=== PATIENT | male | born 1945 | race Caucasian/White ===

== ENCOUNTER 2018-08-02 07:39 | Inpatient (IN) | payer OTHER ==
--- NOTE | 2018-08-01 15:42 | GHP ---
DATE OF ADMISSION: 08/02/2018 DATE OF SURGERY: 08/02/2018. HISTORY OF PRESENT ILLNESS: The patient is a 73-year-old male who has had progressive problems with his right shoulder for years. He has pain, progressive limitation of motion. He has been diagnosed by x-ray and MRI, is having advanced and severe glenohumeral osteoarthritis of the right shoulder. H e has tried exercises. He has tried injections, none of which have been helpful in the progression o f his shoulder dysfunction. His x-rays show severe [id number] osteoarthritis of the glenohumeral j oint with flattening of the humeral head, inferior bone spurring, subchondral sclerosis. He has had an MRI that confirms his advanced glenohumeral osteoarthritis. He does have some rotator cuff tendin osis without significant tear of the rotator cuff. He has opted to proceed with a right total should er arthroplasty. PAST MEDICAL HISTORY: No medical problems. PAST SURGICAL HISTORY: Include a tonsillectomy, adenoidectomy, appendectomy. He has had foot proced ures, toe and bunion. MEDICATIONS: He is using supplements only, vitamins, glucosamine, B12, vitamin D. ALLERGIES: No known drug allergies. SOCIAL HISTORY: He is a nonsmoker. REVIEW OF SYSTEMS: Negative for cardiopulmonary disease. PHYSICAL EXAM: GENERAL APPEARANCE: The patient is a well-developed, well-nourished male in no appar ent distress. HEAD AND NECK: Normocephalic, atraumatic. CHEST: Clear. CARDIOVASCULAR: Regular r ate and rhythm. ABDOMEN: Soft. NEUROLOGIC: He is alert and oriented x3. EXTREMITIES: The right shoulder shows about 90 degrees of forward flexion. He only has about 5 degrees of external rotation . He can just get his hand to his low back. He has reasonable strength on initiation of abduction, external rotation, and can support supraspinatus testing. IMPRESSION: Right shoulder osteoarthritis. PROCEDURE: A right total shoulder arthroplasty. Benefits and risks of surgery have been reviewed wi th the patient. He understands that the risks include infection, damage to blood vessel or nerve, fa ilure or loosening of the components, and need for revision. We have reviewed the rehab and recovery process. He has signed his consent form and wishes to proceed. /[id number]/MODL
[2018-08-02] MEDS ORDERED: TRANEXAMIC ACID 1,000 MG in NS 100 ML IV ONE (07:49)
[2018-08-02] MEDS ORDERED: ceFAZolin 2 GM/DEXTROSE 100 ML IV ONE (07:49)
[2018-08-02] MEDS ORDERED: LR 1,000 ML IV SCH ×2 (07:49→13:30)
[2018-08-02] MEDS ORDERED: ROPIVACAINE 0.2% 80 MG, EPINEPHrine 0.2 MG, KETOROLAC TROMETHAMINE 30 MG in SYRINGE 0 ML IU ONE (07:49)
[2018-08-02] MEDS ORDERED: ACETAMINOPHEN 500 MG TAB PO ONE (07:49)
[2018-08-02] MEDS ORDERED: PREGABALIN 150 MG CAP PO ONE ×2 (07:49→08:00)
[2018-08-02] MEDS ORDERED: LIDOCAINE 1% 2 ML INJ ID PRN (07:53)
[2018-08-02] MEDS ORDERED: LR 1,000 ML IV ONE (07:53)
[2018-08-02] MEDS ORDERED: BUPIVACAINE/EPI 0.5% 30 ML SDV ONE (09:07)
[2018-08-02] MEDS ORDERED: POLYMYXIN B SULFATE 500,000 UNIT/10 ML SYR IRR ONE (09:07)
[2018-08-02] MEDS ORDERED: ONDANSETRON 4 MG/2 ML VIAL ONE (09:22)
[2018-08-02] MEDS ORDERED: fentaNYL 100 MCG/2 ML INJ ONE (09:22)
[2018-08-02] MEDS ORDERED: LIDOCAINE 2% 100 MG/5 ML SYR ONE (09:22)
[2018-08-02] MEDS ORDERED: DEXAMETHASONE 4 MG/ML VIAL ONE (09:22)
[2018-08-02] MEDS ORDERED: ROPIVACAINE HCL 150 MG/30 ML INJ ONE (09:22)
[2018-08-02] MEDS ORDERED: PROPOFOL 200 MG/20 ML VIAL ONE ×2 (09:23→11:24)
[2018-08-02] MEDS ORDERED: MIDAZOLAM 2 MG/2 ML VIAL IVP ONE (10:01)
--- NOTE | 2018-08-02 10:01 | PDANEPAE ---
ANE Past Medical History - Cardiovascular History Hx Hypertension: No Hx Arrhythmias: No Hx Chest Pain: No Hx Coronary Artery / Peripheral Vascular Disease: No Hx CHF / Valvular Disease: No Hx Palpitations: No - Pulmonary History Hx COPD: No Hx Asthma/Reactive Airway Disease: No Hx Recent Upper Respiratory Infection: No Hx Oxygen in Use at Home: No Hx Sleep Apnea: No Sleep Apnea Screening Result - Last Documented: Negative - Neurologic History Hx Cerebrovascular Accident: No Hx Seizures: No Hx Dementia: No - Endocrine History Hx Diabetes: No - Renal History Hx Renal Disorders: No - Liver History Hx Hepatic Disorders: No - Neurological & Psychiatric Hx Hx Neurological and Psychiatric Disorders: No - Cancer History Hx Cancer: No - Congenital Disorder History Hx Congenital Disorders: Yes Congenital History Comment: hemochromatosis - being followed by [facility] - GI History Hx Gastrointestinal Disorders: No - Other Health History Other Health History: wears glasses. bilateral hearing aids. permanent retainer behind front teeth - Chronic Pain History Chronic Pain: No - Surgical History Prior Surgeries: appendectomy as a child. t&a as a child. 06/2012, bunionectomy right foot ANE Review of Systems Review of Systems: - Exercise capacity METS (RN): 4 METS ANE Patient History - Allergies Allergies/Adverse Reactions: No Known Allergies Allergy (Verified 07/28/18 14:19) - Home Medications Home Medications: Cholecalciferol Vit D3 [Vitamin D3 (*)] 2,000 units PO DAILY 07/23/18 [Last Taken 07/28/18] Herbals/Supplements -Info Only 1 ea PO DAILY 07/23/18 [Last Taken 07/28/18] - NPO status NPO Since - Liquids (Date): 08/02/18 NPO Since - Liquids (Time): 03:15 NPO Since - Solids (Date): 08/01/18 NPO Since - Solids (Time): 19:15 - Smoking Hx Smoking Status: Never smoked - Family Anes Hx Family Hx Anesthesia Complications: none ANE Labs/Vital Signs - Vital Signs Blood Pressure: 175/91 Heart Rate: 57 Respiratory Rate: 14 O2 Sat (%): 92 Height: 172.09 cm Weight: 80.739 kg ANE Physical Exam - Airway Neck exam: FROM Mallampati Score: Class 2 Mouth exam: normal dental/mouth exam - Pulmonary Pulmonary: no respiratory distress - Cardiovascular Cardiovascular: regular rate and rhythym - ASA Status ASA Status: II ANE Anesthesia Plan Anesthesia Plan: GA w LMA Regional Anesthesia: single shot NB Total IV Anesthesia: No
--- NOTE | 2018-08-02 10:09 | PDHPUP ---
History & Physical Update H&P update statement: This history and physical update is based on an assessment of the patient which was completed after admission or registration (within 24 hours), but prior to the surgery/procedure. no change H&P update: changes noted (no change)
[2018-08-02] MEDS ORDERED: ONDANSETRON 4 MG/2 ML VIAL IVP PRN (13:13)
[2018-08-02] MEDS ORDERED: HYDROCODONE/APAP 5/325 TAB PO PRN (13:13)
[2018-08-02] MEDS ORDERED: ACETAMINOPHEN 325 MG TAB PO PRN (13:13)
[2018-08-02] MEDS ORDERED: TEMAZEPAM 15 MG CAP PO PRN (13:13)
[2018-08-02] MEDS ORDERED: NALOXONE HCL 0.4 MG/ML INJ IVP PRN (13:25)
[2018-08-02] MEDS ORDERED: oxyCODONE IR 5 MG TAB PO PRN (13:25)
[2018-08-02] MEDS ORDERED: MEPERIDINE 25 MG/0.5 ML AMP IVP PRN (13:25)
[2018-08-02] MEDS ORDERED: PROMETHAZINE HCL 25 MG/ML INJ IVP PRN (13:25)
[2018-08-02] MEDS ORDERED: HYDROmorphONE/DILAUDID 2 MG/ML INJ IVP PRN (13:25)
[2018-08-02] MEDS ORDERED: LR 500 ML IV PRN (13:25)
--- NOTE | 2018-08-02 14:01 | PDMN ---
Medical Necessity Medical necessity: CPT 61736 TSA, IP only procedure
--- NOTE | 2018-08-02 14:43 | POSTANESTH ---
Post Anesthetic Evaluation Cardiovascular Status: Normal, Stable Respiratory Status: Normal, Stable Level of Consciousness/Mental Status: Can Participate in Eval Pain Control: Adequate, Prn Tx Ordered Nausea/Vomiting Control: Adequate, Prn Tx Ordered Complications Possibly Related to Anesthesia: None Noted (Unable to move UE and good pain control on my exam)
--- NOTE | 2018-08-02 14:44 | GOP ---
DATE OF OPERATION: 08/02/2018 SURGEON: Chris Kendall MD SUPPLY CHAIN ASSOCIATE: SHARAD Dasilva, AMANUELA PREOPERATIVE DIAGNOSIS: Right shoulder osteoarthritis. POSTOPERATIVE DIAGNOSIS: Right shoulder osteoarthritis. PROCEDURE PERFORMED: Right total shoulder arthroplasty. FINDINGS: SPECIMENS: Include excised bone. ESTIMATED BLOOD LOSS: About 75 cc. INDICATIONS: The patient is a 73-year-old male who presents with history, exam, x-rays, and MRI all consistent with severe right shoulder osteoarthritis. There is cuff tendinopathy, but no full thickn ess cuff tear. He has tried appropriate conservative measures, has had chronic problems with his little ulder, limited motion, pain. A right total shoulder arthroplasty is planned. DESCRIPTION OF PROCEDURE: The patient was taken to the operating room and a single injection scalene block was provided. He received 2 g of IV Ancef, as well as a dose of tranexamic acid. He was plac ed in a semi-beach chair position using a De Paz wet process head miller, moving him over to the right side of the table so I could extend his right arm. The right shoulder and arm were prepped and draped free i n the usual fashion. I used an anterior approach to the shoulder. My incision line extended from the coracoid process to a point in the anterior upper third of the arm. I used a deltopectoral approach. I identified that plane and bluntly dissected down to the subdeltoid fascia. I incised the tissues just lateral to the conjoined tendon and this afforded a good view of the anterior aspect of the humeral head. There we re numerous osteophytes palpable, a lot of inflammatory and redundant tissue. His external rotation very limited. I tenodesed the long head biceps just above the pectoralis insertion into its fibro-os seous tunnel and used 2 sutures of #2 FiberWire, then released the biceps just above it and then in t he joint. I opened the rotator cuff and capsule anteriorly, starting the rotator interval, carrying this down o lamar the lesser tuberosity, and then into the inferior capsule. By palpating the nerve coursing under the capsule, I used scissors to release the inferior capsule protecting the nerve. This allowed me to sublux the humeral head up into the wound. I used a neck cutting guide and dialed in about 20 to 25 degrees of retroversion and made a humeral head cut. I then removed rimming osteophytes. An awl was used to gain access to the canal and I reamed up to 12 mm and this became a fairly snug fit in th e humerus. I then broached, maintaining the appropriate retroversion up to a size 12. I left this b rae in place. I then focused on release of a bit more of the capsule inferiorly and posteriorly, a nd this allowed me to place anterior and posterior glenoid rim retractors and I debrided scar tissue and labrum from the rim of the glenoid. I also dissected a bit underneath the subscapularis muscle t endon unit to make this a mobile unit for later repair. This had been previously tagged. I sized the glenoid to a size 52, and I went through the usual sequence of a central pin. I reamed t he surface smoothed by hand with a T-handle. I drilled the central PEG hole. I completed the remain darion of the stabilization pegs and the trial 52 glenoid was a good fit. I then tried the PEG holes le aving the central bony ingrowth PEG free, and I used a small amount of cement in the 3 peripheral PEG holes and the anchor PEG glenoid crosslink poly component was pressed into place and it was a good f it. I then focused on the humerus. The trial was removed and I drilled holes in the anterior aspect of t he of the humeral neck and passed #2 FiberWire sutures for later repair of the subscapularis. The si ze 12 [employer] press-fit proximally porous coated stem was hammered into place with excellent fit. I then did a series of trial reductions. I chose a [employer] eccentric head. It is 52 x 21 mm. The larger dimension of the head was directed superiorly, and this was an excellent fit ma tching the neck and came up nicely under the rotator cuff. I trimmed back any rimming osteophytes. This was hammered into place. The joint was reduced. It was stable, allowed rotation, and allowed m e to repair the subscapularis. I mattressed the multiple FiberWire sutures through the subscapularis , 4 of them in total, and this provided a nice subscapularis repair. I also did 2 uglcay-eh-hycbi toscano tures of #2 FiberWire in the interval superiorly. This allowed about 20 to 30 degrees of external ro tation. It was a nice stable joint. Copious antibiotic irrigation was used throughout. The muscle layer of the deltopectoral interval wa s loosely closed with interrupted simple sutures of 2-0 Monocryl, subcutaneous tissue was closed with 2-0 and 3-0 Monocryl, and the skin was closed with a running subcuticular Quill suture reinforced wi th tissue glue, Telfa, and Tegaderm. The patient was placed in a sling. COMPLICATIONS: There were no complications. DRAINS: No drain. COUNTS: All counts were correct and the patient was taken in stable condition to recovery. My surgical orderly, Wayne Bran, was a medical necessity to achieve this total shoulder. SUMMARY OF COMPONENTS: This is a [employer] shoulder. The stem is a [place] standard stem size 1 2. The glenoid is an anchor PEG glenoid [employer] crosslink polyethylene, size 52. The head is ecce ntric 52 mm x 21 mm. /[id number]/MODL
[2018-08-02] MEDS: KETOROLAC 30 MG/1 ML SDV IVP SCH (18:23)
[2018-08-02] MEDS: ceFAZolin 2 GM/DEXTROSE 100 ML IV SCH (19:31)
[2018-08-02] MEDS: DOCUSATE SODIUM 100 MG CAP PO SCH (20:49)
[2018-08-03] MEDS: KETOROLAC 30 MG/1 ML SDV IVP SCH ×3 (00:22→11:54)
[2018-08-03] MEDS: ceFAZolin 2 GM/DEXTROSE 100 ML IV SCH (03:04)
--- NOTE | 2018-08-03 08:29 | SOAPPROG ---
SOAP Progress Note Assessment/Plan: Assessment: 08/03/18 POD#1 R TSA, dressing clean, sen axillary nerve ok, post op xray fine, pain controlled Plan: 08/03/18 08:26 PT/OT and home, has PT set up for next wk, luis antonio guaman Objective: Vital Signs Temp Pulse Resp BP Pulse Ox 36.9 C 67 16 121/69 H 94 08/03/18 04:00 08/03/18 04:00 08/03/18 04:00 08/03/18 04:00 08/03/18 04:00 08/02/18 08/03/18 08/04/18 05:59 05:59 05:59 Intake Total 2500 Output Total 1300 Balance 1200 ICD10 Worksheet Patient Problems: Problems Problem Status Onset Primary osteoarthritis, right shoulder Acute - ICD10 Problem Qualifiers (1) Primary osteoarthritis, right shoulder
[2018-08-03] MEDS: DOCUSATE SODIUM 100 MG CAP PO SCH (08:33)
[2018-08-03 08:40] VITALS: BP 138/73
--- NOTE | 2018-08-03 11:31 | ASMTLACE ---
[place] Length of stay for Answers: 2 days current admission Acuity / Level of Answers: Yes Care: Did the patient have an inpatient admission? # of Emergency department Answers: 0 visits in the last 6 months Score: 5 Date Signed: 08/03/2018 11:30 AM Electronically Signed By:ALEXEY Miller
--- NOTE | 2018-08-03 11:32 | ASMTCMCOM ---
CM Note CM Note Notes: Pt had planned shoulder surgery. PT rec home/outpatient. No CM d/c needs identified. Date Signed: 08/03/2018 11:32 AM Electronically Signed By:ALEXEY Miller
== END 2018-08-03 13:03 | disposition home or self-care (01) | DRG 483 ==
LOC: F3N 07:39
PROVIDERS: ADMIT Orthopaedic Surgery; ATTEND Orthopaedic Surgery
PROC: 0RRJ0JZ Replacement of Right Shoulder Joint with Synthetic Substitute, Open Approach (ICD-10-PCS; principal; 2018-08-02 09:00)
DX: M19.011 Primary osteoarthritis, right shoulder (principal); E83.110 Hereditary hemochromatosis
CPT/HCPCS: 97161-GP; 97165-GO; 97535-GO; C1713; G8978-GP-CI; G8979-GP-CI; G8980-GP-CI; J0171; J0690; J1100; J1885; J2001; J2250; J2405; J2704; J2795; J3010